=== PATIENT | male | born 1990 | race African-American/Black ===

== ENCOUNTER 2017-01-13 10:22 | Inpatient (IN) | payer OTHER ==
[~2017-01-13] VITALS: Ht 180.3 cm; Wt 82.0 kg
[~2017-01-13 10:22] MED LIST: AMBI5TAB PO; CLON1 PO; CYCL1PAK PO; FENT75DI TD; OXYC1SOL5 PO; QUET100 PO
[2017-01-18] MEDS ORDERED: ACETAMINOPHEN 1000 MG/100 ML VIAL IV ONE (06:54)
[2017-01-18] MEDS ORDERED: SUGAMMADEX SODIUM 200 MG/2 ML VIAL IV PUSH ONE ×2 (06:54)
[2017-01-18] MEDS ORDERED: RANI150T PO (07:03)
[2017-01-18] MEDS ORDERED: HYDR50TA94 PO (07:03)
[2017-01-18] MEDS ORDERED: MAGNSOL2 PO (07:03)
[2017-01-18] MEDS ORDERED: BUSP15TA PO (07:03)
[2017-01-18 07:05] VITALS: BP 140/80; PULSE 78; RESP 16; TEMP 97.5; O2SAT 100
[2017-01-18] MEDS ORDERED: BUPIVACAINE/EPINEPHRINE 0.5% PF 30 ML VIAL ONE (07:08)
[2017-01-18] MEDS ORDERED: METRONIDAZOLE 500 MG/100 ML ISONTONIC SOLN IV SCH ×2 (07:15)
[2017-01-18] MEDS ORDERED: LACTATED RINGER'S 1000 ML IV SCH (07:15)
[2017-01-18] MEDS ORDERED: METOPROLOL TARTRATE 25 MG TAB PO PRN (07:15)
[2017-01-18] MEDS ORDERED: ceFAZolin 1,000 MG/NS 100 ML IV SCH ×2 (07:15)
[2017-01-18] MEDS ORDERED: INSULIN HUMAN REGULAR 1,000 UNITS/10 ML VIAL SQ PRN (07:15)
[2017-01-18] MEDS ORDERED: SODIUM CHLORID 0.9% 500 ML IV SCH (07:15)
[2017-01-18] MEDS ORDERED: ALVIMOPAN 12 MG CAPSULE ONE (07:17)
[2017-01-18 07:25] LABS: BASOPHIL # 0.1 TH/MM3 (0-0.2); BASOPHIL % 1.1 % (0.0-2.0); EOSINOPHIL # 0.1 TH/MM3 (0-0.4); EOSINOPHIL % 1.4 % (0.0-4.0); HEMATOCRIT 40.5 % (39.0-51.0); HEMO FLAGS DIFF FINAL; LYMPH % 34.7 % (9.0-44.0); MEAN CELL VOLUME 81.3 FL (80.0-100.0); MEAN CORPUSCULAR HEMOGLOBIN 27.6 PG (27.0-34.0); MONO % 10.6 % (0.0-8.0); NEUT % 52.2 % (16.0-70.0); PLATELET COUNT 222 TH/MM3 (150-450); RED BLOOD COUNT 4.98 MIL/MM3 (4.50-5.90); RED CELL DISTRIBUTION WIDTH 13.4 % (11.6-17.2); WHITE BLOOD COUNT 5.7 TH/MM3 (4.0-11.0)
[2017-01-18] MEDS ORDERED: CHLORHEXIDINE GLUCONATE 2 % 1 PACK (2 CLOTHS) TOP SCH (07:30)
[2017-01-18] MEDS ORDERED: POVIDONE IODINE 5% (ANTISEPSIS KIT) 4 APPLICATIONS EACH NARE SCH (07:30)
[2017-01-18 07:37] LABS: ANION GAP 9 MEQ/L (5-15); AST (GOT) 9 U/L (15-37); BICARBONATE 31.2 MEQ/L (21.0-32.0); BLOOD UREA NITROGEN 11 MG/DL (7-18); CHLORIDE 102 MEQ/L (98-107); GLOMERULAR FILTRATION RATE 114 ML/MIN (>89); POTASSIUM 3.7 MEQ/L (3.5-5.1); SODIUM (NA) 142 MEQ/L (136-145)
[2017-01-18] MEDS ORDERED: FAMOTIDINE 20 MG/2 ML VIAL ONE (07:40)
[2017-01-18] MEDS ORDERED: DEXAMETHASONE SOD PHOS 4 MG/ML VIAL ONE (07:40)
[2017-01-18 07:41] LABS: ALKALINE PHOSPHATASE 67 U/L (45-117); ALT (GPT) 19 U/L (12-78); TOTAL BILIRUBIN ADULT 1.6 MG/DL (0.2-1.0)
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
[2017-01-18] MEDS ORDERED: ONDANSETRON HCL 4 MG/2 ML VIAL IV PRN (10:00)
[2017-01-18] MEDS ORDERED: NALOXONE HCL 0.4 MG/ML AMP IV PRN ×2 (10:00→20:00)
[2017-01-18] MEDS ORDERED: Post-op Orders (for Pharmacy) MISC XX ONE (10:00)
[2017-01-18] MEDS ORDERED: MIDAZOLAM HCL 2 MG/2 ML VIAL ONE (10:09)
[2017-01-18] MEDS ORDERED: fentaNYL CITRATE 250 MCG/5 ML AMP ONE (10:09)
[2017-01-18] MEDS: LACTATED RINGER'S 1000 ML INJ 1,000 ML IV SCH ×2 (11:00→20:07)
[2017-01-18] MEDS ORDERED: ALVIMOPAN 12 MG CAPSULE - On Call PO SCH (11:00)
[2017-01-18] MEDS ORDERED: *MEPERIDINE 25 MG INJ VIAL PERIprocedural Use ONLY ONE (11:06)
[2017-01-18] MEDS: PANTOPRAZOLE SODIUM 40 MG VIAL IV PUSH SCH (11:56)
[2017-01-18] MEDS ORDERED: NEOSTIGMINE 3 MG/3 ML SYR IV ONE (12:00)
[2017-01-18] MEDS ORDERED: ONDANSETRON HCL 4 MG/2 ML VIAL IV PUSH ONE (12:00)
[2017-01-18] MEDS ORDERED: LACTATED RINGER'S 1000 ML INJ 1,000 ML IV ONE (12:00)
[2017-01-18] MEDS ORDERED: PROPOFOL 200 MG/20 ML AMP IV ONE (12:00)
[2017-01-18 13:10] VITALS: BP 126/87; PULSE 105; RESP 18; TEMP 98; O2SAT 99
[2017-01-18 13:47] VITALS: O2SAT 98
[2017-01-18] MEDS: HYDROmorphone HCL PCA 6 MG/30 ML IV SCH ×2 (13:50→13:57)
[2017-01-18] MEDS: ACETAMINOPHEN 1000 MG/100 ML VIAL IV SCH ×2 (13:51→20:07)
[2017-01-18] MEDS ORDERED: PCA - TOTAL MG DILAUDID DELIVERED PER SHIFT OTHER SCH (14:00)
[2017-01-18 16:00] VITALS: BP 129/72; PULSE 97; RESP 18; TEMP 96.9; O2SAT 93
[2017-01-18 20:00] VITALS: BP 141/81; PULSE 93; RESP 18; TEMP 97.6; O2SAT 95
[2017-01-18] MEDS: diphenhydrAMINE HCL 50 MG/ML VIAL IV PRN (20:08)
[2017-01-18] MEDS: MORPHINE SULFATE 30 MG/30 ML PCA IV SCH (20:11)
[2017-01-18] MEDS: PCA - TOTAL MG MORPHINE DELIVERED PER SHIFT SCH (20:19)
[2017-01-19] VITALS (8 sets, daily range): BP systolic 130–161; BP diastolic 77–94; PULSE 97–120; RESP 18–20; TEMP 96.3–101.1; O2SAT 94–98
[2017-01-19] MEDS: diphenhydrAMINE HCL 50 MG/ML VIAL IV PRN ×2 (01:31→07:54)
[2017-01-19] MEDS: ACETAMINOPHEN 1000 MG/100 ML VIAL IV SCH ×2 (01:32→07:55)
[2017-01-19] MEDS: PCA - TOTAL MG MORPHINE DELIVERED PER SHIFT SCH (04:14)
[2017-01-19] MEDS: LACTATED RINGER'S 1000 ML INJ 1,000 ML IV SCH ×3 (04:15→20:20)
[2017-01-19] MEDS: MORPHINE SULFATE 30 MG/30 ML PCA IV SCH (04:21)
[2017-01-19] MEDS: ALVIMOPAN 12 MG CAPSULE - Post-op dosing PO SCH ×2 (07:55→20:20)
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
[2017-01-19] MEDS: PANTOPRAZOLE SODIUM 40 MG VIAL IV PUSH SCH (10:47)
[2017-01-19] MEDS: HYDROmorphone HCL PCA 6 MG/30 ML IV SCH ×3 (11:03→18:54)
[2017-01-19] MEDS: PCA - TOTAL MG DILAUDID DELIVERED PER SHIFT OTHER SCH ×2 (14:00→20:20)
[2017-01-20] VITALS (8 sets, daily range): BP systolic 137–164; BP diastolic 81–98; PULSE 106–121; RESP 14–18; TEMP 96.1–100.4; O2SAT 95–99
[2017-01-20] MEDS: PCA - TOTAL MG DILAUDID DELIVERED PER SHIFT OTHER SCH ×3 (05:28→20:14)
[2017-01-20] MEDS: HYDROmorphone HCL PCA 6 MG/30 ML IV SCH ×4 (05:44→22:02)
[2017-01-20] MEDS: ALVIMOPAN 12 MG CAPSULE - Post-op dosing PO SCH ×2 (09:27→20:11)
[2017-01-20] MEDS: PANTOPRAZOLE SODIUM 40 MG VIAL IV PUSH SCH (10:03)
[2017-01-20] MEDS: LACTATED RINGER'S 1000 ML INJ 1,000 ML IV SCH ×2 (13:00→22:02)
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
[2017-01-21] VITALS: BP 160/88; PULSE 108; RESP 17; TEMP 96.4; O2SAT 94
[2017-01-21] MEDS: HYDROmorphone HCL PCA 6 MG/30 ML IV SCH ×3 (02:20→17:10)
[2017-01-21 04:00] VITALS: BP 132/86; PULSE 103; RESP 17; TEMP 99.2; O2SAT 96
[2017-01-21] MEDS: PCA - TOTAL MG DILAUDID DELIVERED PER SHIFT OTHER SCH ×3 (06:00→19:59)
[2017-01-21 08:00] VITALS: BP 135/88; PULSE 105; RESP 18; TEMP 99; O2SAT 100
[2017-01-21] MEDS: ALVIMOPAN 12 MG CAPSULE - Post-op dosing PO SCH ×2 (09:00→19:58)
[2017-01-21] MEDS: PANTOPRAZOLE SODIUM 40 MG VIAL IV PUSH SCH (11:00)
[2017-01-21 12:00] VITALS: BP 154/101; PULSE 103; RESP 17; TEMP 98.7; O2SAT 98
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
[2017-01-21 16:00] VITALS: BP 153/96; PULSE 101; RESP 16; TEMP 98.8; O2SAT 99
[2017-01-21] MEDS: LACTATED RINGER'S 1000 ML INJ 1,000 ML IV SCH ×2 (16:37→16:40)
[2017-01-21 20:00] VITALS: BP 152/96; PULSE 99; RESP 17; TEMP 99.2; O2SAT 98
[2017-01-22] VITALS: BP 133/84; PULSE 90; RESP 17; TEMP 98.8; O2SAT 96
[2017-01-22] MEDS: HYDROmorphone HCL PCA 6 MG/30 ML IV SCH ×3 (00:42→10:57)
[2017-01-22 04:00] VITALS: BP 136/77; PULSE 98; RESP 17; TEMP 99; O2SAT 97
[2017-01-22] MEDS: LACTATED RINGER'S 1000 ML INJ 1,000 ML IV SCH (05:24)
[2017-01-22] MEDS: PCA - TOTAL MG DILAUDID DELIVERED PER SHIFT OTHER SCH (05:27)
[2017-01-22 08:00] VITALS: BP 132/86; PULSE 95; RESP 17; TEMP 99.1; O2SAT 97
[2017-01-22] MEDS: ALVIMOPAN 12 MG CAPSULE - Post-op dosing PO SCH ×2 (09:30→20:21)
[2017-01-22] MEDS: PANTOPRAZOLE SODIUM 40 MG VIAL IV PUSH SCH (10:58)
[2017-01-22 12:00] VITALS: BP 154/99; PULSE 102; RESP 16; TEMP 98.6; O2SAT 98
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
[2017-01-22] MEDS ORDERED: NORC5TAB PO (13:47)
[2017-01-22 16:00] VITALS: BP 140/84; PULSE 107; RESP 16; TEMP 99; O2SAT 96
[2017-01-22] MEDS: ACETAMINOPHEN/HYDROcodone 325 MG/5 MG TAB PO PRN (17:09)
[2017-01-22 20:00] VITALS: BP 148/87; PULSE 101; RESP 18; TEMP 99.6; O2SAT 95
[2017-01-23] VITALS: BP 133/83; PULSE 92; RESP 18; TEMP 98.5; O2SAT 98
[2017-01-23] MEDS: ACETAMINOPHEN/HYDROcodone 325 MG/5 MG TAB PO PRN ×3 (06:35→21:15)
[2017-01-23 08:00] VITALS: BP 130/78; PULSE 101; RESP 20; TEMP 96.2; O2SAT 97
[2017-01-23] MEDS: PANTOPRAZOLE SOD 20 MG DELAYED RELEASE TAB PO SCH (09:00)
[2017-01-23] MEDS: ALVIMOPAN 12 MG CAPSULE - Post-op dosing PO SCH ×2 (09:09→21:15)
[2017-01-23 12:00] VITALS: BP 133/91; PULSE 86; RESP 20; TEMP 98.7; O2SAT 95
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
[2017-01-23 16:00] VITALS: BP 135/83; PULSE 83; RESP 19; TEMP 97.8; O2SAT 95
[2017-01-23 20:08] VITALS: BP 128/82; PULSE 85; RESP 17; TEMP 99.1; O2SAT 97
[2017-01-23 23:52] VITALS: BP 136/87; PULSE 80; RESP 20; TEMP 98.9; O2SAT 98
[2017-01-24] MEDS: PANTOPRAZOLE SOD 20 MG DELAYED RELEASE TAB PO SCH (07:35)
[2017-01-24] MEDS: ACETAMINOPHEN/HYDROcodone 325 MG/5 MG TAB PO PRN (07:35)
[2017-01-24] MEDS: ALVIMOPAN 12 MG CAPSULE - Post-op dosing PO SCH (07:35)
[2017-01-24 08:00] VITALS: BP 120/85; PULSE 85; RESP 18; TEMP 98.5; O2SAT 97
[2017-01-24 12:00] VITALS: BP 134/90; PULSE 101; RESP 18; TEMP 97.9; O2SAT 98
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
== END 2017-01-24 13:35 | DRG 331 ==
LOC: HSDI 01-18 06:06 → N07B 01-18 12:53
PROVIDERS: ADMIT Surgery; ATTEND Surgery
PROC: 0DNW4ZZ Release Peritoneum, Percutaneous Endoscopic Approach (ICD-10-PCS; 2017-01-18)
PROC: 0DBE4ZZ Excision of Large Intestine, Percutaneous Endoscopic Approach (ICD-10-PCS; principal; 2017-01-18 07:57)
DX: Z43.3 Encounter for attention to colostomy (principal); F31.9 Bipolar disorder, unspecified; K66.0 Peritoneal adhesions (postprocedural) (postinfection); F43.12 Post-traumatic stress disorder, chronic; J45.909 Unspecified asthma, uncomplicated
CPT/HCPCS: 80053; 85025; 86850; 86900; 86901; 94150; C9113; J0131; J0690; J1100; J1170; J1200; J2175; J2250; J2270; J2405; J2710; J3010; J7120